=== PATIENT | female | born 1955 | race Caucasian/White ===

== ENCOUNTER 2023-07-23 17:49 | Emergency (ER) | payer MEDICARE, OTHER ==
[~2023-07-23] VITALS: Ht 162.6 cm; Wt 72.6 kg
[2023-07-23] MEDS ORDERED: ROSUVASTATIN CA20 MG PO (18:02)
[2023-07-23] MEDS ORDERED: SPIRONOLACTONE100 MG NG (18:02)
[2023-07-23 18:23] LABS: BASOPHILS 0.2 % (0-2); EOSINOPHILS 0.4 % (0-6); HEMATOCRIT 39.8 % (35.0-50.0); HEMOGLOBIN 13.5 g/dL (12.0-18.0); LYMPHOCYTES 11.4 % (24-44); MCH 31.8 (27-36); MCV 93.5 fl (81-99); MONOCYTES 3.6 % (0-12); NEUTROPHILS 84.4 % (39-80); PLATELET COUNT 315 K/uL (140-440); RBC 4.25 M/ul (4.3-5.7); RDW 12.7 (10.5-15.0)
[2023-07-23 18:36] LABS: ALBUMIN 3.8 g/dL (3.4-5.0); ALBUMIN/GLOBULIN RATIO 1.06 (1.1-2.4); ANION GAP 12.4 (7-21); BILIRUBIN, TOTAL 0.8 ng/dL (0.2-1.0); BUN/CREATININE RATIO 21.87 (6.0-28.6); CALCIUM 9.5 mg/dL (8.5-10.1); CREATININE, SERUM 0.96 mg/dL (0.55-1.02); POTASSIUM 3.4 mmol/L (3.5-5.1); PROTEIN, TOTAL 7.4 g/dL (6.4-8.2)
[2023-07-23 19:15] LABS: BILIRUBIN, URINE NEGATIVE (negative); BLOOD/HGB, URINE NEGATIVE (Negative); KETONE, URINE NEGATIVE (Negative); LEUK ESTERASE, URINE NEGATIVE (negative); NITRITE, URINE NEGATIVE (negative); PH, URINE 5.5 (5-7)
[2023-07-23 21:04] VITALS: BP 136/86
== END 2023-07-23 21:04 | disposition home or self-care (01) ==
LOC: ED 17:49
PROVIDERS: Emergency Medicine
DX: R10.31 Right lower quadrant pain (principal); Z88.2 Allergy status to sulfonamides; Z79.899 Other long term (current) drug therapy
CPT/HCPCS: 36415; 74177; 80053; 81003; 83690; 85025; J2405; J7030; Q9967